=== PATIENT | male | born 1970 | race Native Hawaiian/Other Pacific Islander ===

== ENCOUNTER 2019-11-18 16:05 | Emergency (ER) | payer OTHER ==
[~2019-11-18] VITALS: Ht 177.8 cm; Wt 73.0 kg
[2019-11-18 16:13] VITALS: TEMP 98.9
[2019-11-18 17:00] VITALS: BP 108/72
== END 2019-11-18 17:00 | disposition home or self-care (01) ==
LOC: ED 16:05
DX: K40.90 Unilateral inguinal hernia, without obstruction or gangrene, not specified as recurrent (principal)
CPT/HCPCS: 99281